=== PATIENT | male | born 1975 | race Caucasian/White ===

== ENCOUNTER 2023-12-23 06:09 | Emergency (ER) | payer OTHER, SELFPAY ==
[2023-12-23] VITALS (13 sets, daily range): BP systolic 120–171; BP diastolic 76–78; PULSE 54–75; RESP 11–21; TEMP 37.2; O2SAT 81–100
[2023-12-23 06:31] LABS: Basophils Absolute Auto 0.1 K/mm3 (0.0-0.1); Basophils Percent Auto 0.7 % (0.2-1.2); Eosinophils Absolute Auto 0.1 K/mm3 (0-0.3); Eosinophils Percent Auto 1.6 % (0-4.4); Hematocrit 47.5 % (42.0-52.0); Hemoglobin 15.9 g/dL (14.0-18.0); Immature Granulocyte Absolute 0.03 K/mm3 (0.00-0.031); Immature Granulocyte Percent A 0.3 % (0-0.5); Lymphocytes Absolute Auto 1.93 K/mm3 (0.9-3.2); Lymphocytes Percent Auto 22.5 % (18.3-44.2); Mean Corpuscular HGB Conc 33.5 g/dl (32-36); Mean Corpuscular Hemoglobin 28.9 pg (26-34); Mean Corpuscular Volume 86.2 fl (80-100); Mean Platelet Volume 9.4 fl (7.4-10.4); Monocytes Absolute Auto 0.6 K/mm3 (0.1-0.6); Monocytes Percent Auto 7.2 % (2.6-8.5); Neutrophils Absolute Auto 5.8 K/mm3 (1.3-6.7); Neutrophils Percent Auto 67.7 % (45.5-73.1); Platelet Count Result 244 k/mm3 (150-375); Red Blood Count 5.51 M/mm3 (4.6-6.20); Red Cell Distribution Width 12.5 % (11.5-14.5); White Blood Count 8.6 K/mm3 (4.5-10.0)
[2023-12-23 07:23] LABS: Alanine Aminotransferase 18 U/L (6-50); Albumin Level 4.5 g/dL (3.5-5.1); Alkaline Phosphatase 93 U/L (38-126); Anion Gap 8 mmol/L (4-12); Aspartate Amino Transferase 20 U/L (17-59); Bilirubin,Total 0.4 mg/dL (0.2-1.3); Blood Urea Nitrogen 13 mg/dL (9-20); Calcium 9.5 mg/dL (8.4-10.2); Carbon Dioxide 25 mmol/L (22-30); Chloride 107 mmol/L (98-107); Estimated CRCL calculation 94 ml/min; Estimated Glomerular Filt Rate > 60; Glucose 169 mg/dL (65-110); Lipase 92 U/L (23-300); Potassium 3.9 mmol/L (3.4-5.0); Sodium 140 mmol/L (137-145)
[2023-12-23] MEDS: SODIUM CHLORIDE 0.9% IV 1,000 ML 999 ML IV CONT (07:28)
[2023-12-23] MEDS: KETOROLAC 30 MG/ML VIAL (*BKC) IV PUSH (07:29)
--- NOTE | 2023-12-23 07:31 | ED.GENADULT ---
HPI - General Adult General Chief complaint: Abdominal Pain Stated complaint: abd pain Time Seen by Provider: 12/23/23 07:03 History of Present Illness HPI narrative: Patient is a 48-year-old male who presents ER with right-sided back pain. It is down low he is concerned it is located in the region of his kidney. Ongoing for 2 days. Sharp. No improvement with ibuprofen. No radiation. It is better when he lays down flat and worse when he is up and moving. No radiation into the groin. No history kidney stones. No lower extremity numbness or tingling. No urinary frequency urgency or dysuria. Related Data Allergies Allergy/AdvReac Type Severity Reaction Status Date / Time No Known Allergies Allergy Unverified 09/04/15 19:36 Review of Systems Review of Systems: All systems reviewed & are unremarkable except as noted in HPI and below Constitutional: Constitutional: Reports no additional constitutional complaints Cardiovascular: Cardiovascular: Reports no additional cardiovascular complaints Gastrointestinal: Gastrointestinal: Reports no additional gastrointestinal complaints Genitourinary: Genitourinary: Reports no additional male genitourinary complaints [facility] Social History Social History Smoking status: Current every day smoker Alcohol intake: current Exam Narrative: GENERAL: Well-appearing, well-nourished, and in no acute distress. HEAD: Normocephalic, atraumatic. ENT: Mucous membranes moist. CHEST: Clear to auscultation. No respiratory distress. HEART: Regular rate and rhythm. Normal peripheral pulses. ABDOMEN: Soft, nontender, nondistended. Right midaxillary discomfort on the edge of the abdomen/back. BACK: No midline or paraspinal tendernss of T/L-spine. EXTREMITIES: Normal range of motion. No edema. SKIN: Warm, dry, no rash. NEURO: Alert and oriented x3. PSYCH: Normal mood and affect. Course Course Emergency Course: Patient resting comfortably. Lab work normal. Patient not felt to require imaging. Discharge home with muscle relaxers and anti-inflammatory. Vital Signs Vital signs: Vital Signs Temperature 98.9 F 12/23/23 06:12 Pulse Rate 65 12/23/23 06:12 Respiratory Rate 18 12/23/23 06:12 Blood Pressure 171/78 H 12/23/23 06:12 Pulse Oximetry 100 12/23/23 06:12 Oxygen Delivery Room Air 12/23/23 06:12 Temperature 98.9 F 12/23/23 06:12 Pulse Rate 71 12/23/23 09:30 Respiratory Rate 16 12/23/23 09:30 Blood Pressure 129/77 12/23/23 09:30 Pulse Oximetry 100 12/23/23 09:30 Oxygen Delivery Room Air 12/23/23 06:12 Medical Decision Making Vital Signs Vital Signs: Vital Signs Temperature 98.9 F 12/23/23 06:12 Pulse Rate 65 12/23/23 06:12 Respiratory Rate 18 12/23/23 06:12 Blood Pressure 171/78 H 12/23/23 06:12 Pulse Oximetry 100 12/23/23 06:12 Oxygen Delivery Room Air 12/23/23 06:12 Temperature 98.9 F 12/23/23 06:12 Pulse Rate 71 12/23/23 09:30 Respiratory Rate 16 12/23/23 09:30 Blood Pressure 129/77 12/23/23 09:30 Pulse Oximetry 100 12/23/23 09:30 Oxygen Delivery Room Air 12/23/23 06:12 Lab Data 12/23/23 06:26 12/23/23 06:14 Labs: Lab Results 12/23/23 12/23/23 12/23/23 Range/Units 06:14 06:26 09:14 WBC 8.6 (4.5-10.0) K/mm3 RBC 5.51 (4.6-6.20) M/mm3 Hgb 15.9 (14.0-18.0) g/dL Hct 47.5 (42.0-52.0) % MCV 86.2 (80-100) fl MCH 28.9 (26-34) pg MCHC 33.5 (32-36) g/dl RDW 12.5 (11.5-14.5) % Plt Count 244 (150-375) k/mm3 MPV 9.4 (7.4-10.4) fl Immature Gran % (Auto) 0.3 (0-0.5) % Neut % (Auto) 67.7 (45.5-73.1) % Lymph % (Auto) 22.5 (18.3-44.2) % Anderson % (Auto) 7.2 (2.6-8.5) % Eos % (Auto) 1.6 (0-4.4) % Baso % (Auto) 0.7 (0.2-1.2) % Lymph # (Auto) 1.93 (0.9-3.2) K/mm3 Anderson # (Auto) 0.6 (0.1-0.6) K/mm3 Eos # (Auto) 0.1 (0-0.3) K/mm3 Baso # (Auto) 0.1 (0.
[2023-12-23 09:23] LABS: Appearance Urine Clear (Clear); Bilirubin Urine Negative (Negative); Blood Urine Negative (Negative); Color Urine Yellow (Yellow); Glucose Urine UA Negative (Negative); Ketones Urine Negative (Negative); Leukocyte Esterase Ur Negative LEU/UL (Negative); Nitrate Urine Negative (Negative); Protein Urine Negative (Negative); Specific Grav Ur 1.019 (1.001-1.035); Urobilinogen Urine 0.2 mg/dL (<2.0)
[2023-12-23 09:28] LABS: Add Urine Microscopic? NO
== END 2023-12-23 10:04 | disposition home or self-care (01) ==
PROVIDERS: Emergency Medicine; Emergency Provider Emergency Medicine
DX: S39.012A Strain of muscle, fascia and tendon of lower back, initial encounter (principal)
CPT/HCPCS: 36415; 80053; 81003; 83690; 85025; 96361; 96374; 99284; J1885; J7030

== ENCOUNTER 2024-04-12 08:03 | Emergency (ER) | payer OTHER, SELFPAY ==
--- NOTE | ~2024-04-12 | XR_ITS ---
EXAMINATION: XR shoulder RT min 2V DATE: 04/12/2024 08:58 INDICATION: Right shoulder pain. Fall. TECHNIQUE: 4 views of right shoulder were obtained. COMPARISON: None. FINDINGS: Bone alignment is normal. No fracture. There is mild osteoarthritis of glenohumeral joint a nd severe osteoarthritis of acromioclavicular joint. There is mild calcific tendinitis of the rotator cuff. IMPRESSION: 1. Polyarticular osteoarthritis. 2. Mild calcific tendinitis of the rotator cuff. Reviewed, dictated and finalized at location A.
--- NOTE | ~2024-04-12 | XR_ITS ---
XR elbow RT min 3V Ordering provider: Khari Pablo MD History: . FALL FROM 6FT 4 DAYS AGO. RT ARM PAIN/LIMITED ROM . Comparison: None. FINDINGS: BONES: Fragmentation seen in the area of the lateral epicondyle of the distal humerus which may be ac ibrahima or chronic. Clinical correlation for tenderness in the area advised. JOINT SPACES: Normal. SOFT TISSUES: Unremarkable. No definite joint effusion. IMPRESSION: Fragmentation with bones in the lateral condyle of the humerus which is most likely chronic but clini jason correlation for tenderness in the area is advised. Reviewed, dictated and finalized at location A. IMPRESSION: Fragmentation with bones in the lateral condyle of the humerus which is most li karla chronic but clinical correlation for tenderness in the area is advised.
--- NOTE | ~2024-04-12 | XR_ITS ---
XR wrist RT min 3V Ordering provider: Khari Pablo MD History: . FALL FROM 6FT 4 DAYS AGO. RT ARM PAIN/LIMITED ROM . Comparison: None. FINDINGS: BONES: No acute fracture or dislocation. No definite scaphoid fracture. JOINT SPACES: Normal. SOFT TISSUES: Normal. IMPRESSION: No acute osseous abnormality right wrist. Reviewed, dictated and finalized at location A.
[2024-04-12 08:07] VITALS: BP 146/86; PULSE 98; RESP 16; TEMP 36.8; O2SAT 100
[2024-04-12] MEDS: ACETAMINOPHEN 500 MG TABLET 1000 MG PO (08:43)
[2024-04-12] MEDS: methocarbamoL 750 MG TABLET 1500 MG PO (08:44)
[2024-04-12] MEDS: IBUPROFEN 400 MG TABLET 800 MG PO (08:44)
--- NOTE | 2024-04-12 09:05 | PC.NURSE ---
Pt c/o right shoulder discomfort & limited ROM. Pt unable to raise right arm without pain, ROM limited, tender upon palpitation, radial & brachial pulses palp & strong
--- NOTE | 2024-04-12 09:20 | ED.GENADULT ---
HPI - General Adult General Chief complaint: Extremity Injury, Upper Stated complaint: R arm pain after falling off 6ft ladder Time Seen by Provider: 04/12/24 08:28 History of Present Illness HPI narrative: This is a 49-year-old male presenting 3 days after he fell off a 6 ft ladder. Patient fell off ladder landed on his right arm. He felt his shoulder jam at that time. He did not immediately seek medical care but he is now having pain with movement of the right arm. Specifically with abduction of the shoulder. He has been taking Motrin and Tylenol for pain control. Related Data Allergies Allergy/AdvReac Type Severity Reaction Status Date / Time No Known Allergies Allergy Verified 04/12/24 08:10 ON LICENSE OF [facility] Social History Social History Smoking status: Current every day smoker Alcohol intake: current Exam Narrative: APPEARANCE: No apparent distress. Head: atraumatic. EYES: EOMI, NOSE: Atraumatic NECK: Trachea midline RESPIRATORY: No increased rate of breathing CARDIOVASCULAR: RRR, ABDOMINAL: Non-distended MUSCULOSKELETAl: Focal exam of the right upper extremity revealed tenderness with active and passive range motion of the shoulder. No pain on extension flexion of the elbow. No pain in the wrist. Radial ulnar median motor nerve distributions in the hand intact. +2. NEURO: Alert. Moving 4/4 extremities SKIN:: Warm, dry. Normal color PSYCHIATRIC: Normal affect Course Vital Signs Vital signs: Vital Signs Temperature 98.3 F 04/12/24 08:07 Pulse Rate 98 04/12/24 08:07 Respiratory Rate 16 04/12/24 08:07 Blood Pressure 146/86 H 04/12/24 08:07 Pulse Oximetry 100 04/12/24 08:07 Oxygen Delivery Room Air 04/12/24 08:07 Temperature 98.3 F 04/12/24 08:07 Pulse Rate 98 04/12/24 08:07 Respiratory Rate 16 04/12/24 08:07 Blood Pressure 146/86 H 04/12/24 08:07 Pulse Oximetry 100 04/12/24 08:07 Oxygen Delivery Room Air 04/12/24 08:07 Medical Decision Making MDM Narrative Medical decision making narrative: -Course: 49-year-old male presenting right arm pain after a fall. X-rays shoulder showed mild calcific tendonitis. X-ray of the elbow showed some chronic appearing fractures of the lateral condyle. Patient's pain is on the lateral side but located more towards the olecranon. Wrist x-ray is negative. Patient treated with Motrin Tylenol Robaxin patient discharged with primary care/orthopedic follow up. -DDX includes but is not limited to: Soft tissue injury, bony injury -Independent interpretation of studies: Imaging reviewed -Interventions: Motrin Tylenol Robaxin -Shared decision making / Disposition: Discharged -RX Motrin Tylenol Robaxin Vital Signs Vital Signs: Vital Signs Temperature 98.3 F 04/12/24 08:07 Pulse Rate 98 04/12/24 08:07 Respiratory Rate 16 04/12/24 08:07 Blood Pressure 146/86 H 04/12/24 08:07 Pulse Oximetry 100 04/12/24 08:07 Oxygen Delivery Room Air 04/12/24 08:07 Temperature 98.3 F 04/12/24 08:07 Pulse Rate 98 04/12/24 08:07 Respiratory Rate 16 04/12/24 08:07 Blood Pressure 146/86 H 04/12/24 08:07 Pulse Oximetry 100 04/12/24 08:07 Oxygen Delivery Room Air 04/12/24 08:07 Discharge Plan Discharge Clinical Impression: Acute shoulder pain, Elbow pain Patient Disposition: Home, Self-Care Condition: Stable Instructions: Antibiotic Form, Elbow Sprain (ED), Calcific Tendinitis (ED) Additional Instructions: Please take Motrin Tylenol and Robaxin for your pain. Your pain does not improve over the next week please follow-up with orthopedics or primary care physician. Please return if develops severe pain or weakness in her Prescriptions: New ibuprofen 800 mg tablet 800 mg PO TID PRN (Reason: pain) 7 Days Qty: 21 0RF acetaminophen 500 mg tablet 1,000 mg PO TID PRN (Reason: henrique) 7 Days Qty: 42 0RF methocarbamol 750 mg tablet 1,500 mg PO TID Qty: 35 0RF No A
[2024-04-12 09:52] VITALS: BP 140/78; PULSE 78; RESP 18; TEMP 36.8; O2SAT 98
== END 2024-04-12 09:56 | disposition home or self-care (01) ==
PROVIDERS: Emergency Provider Emergency Medicine
DX: S49.91XA Unspecified injury of right shoulder and upper arm, initial encounter (principal); S59.901A Unspecified injury of right elbow, initial encounter; F17.200 Nicotine dependence, unspecified, uncomplicated; M75.31 Calcific tendinitis of right shoulder; M19.011 Primary osteoarthritis, right shoulder; W11.XXXA Fall on and from ladder, initial encounter
CPT/HCPCS: 73030; 73080; 73110; 99284; A9270

== ENCOUNTER 2024-06-25 09:54 | Outpatient (CLI) | payer OTHER, SELFPAY ==
--- NOTE | ~2024-06-25 | MR_ITS ---
EXAMINATION: MR shoulder RT wo con DATE: 06/25/2024 10:24 INDICATION: Unspecified rotator cuff tear or rupture. TECHNIQUE: Magnetic resonance imaging (MRI) of the right shoulder was performed without intravenous c ontrast. Sequences included axial PD-weighted FS FSE, coronal oblique PD-weighted FS FSE and T2-weigh chris FS FSE, and sagittal oblique T2-weighted FS FSE and T1-weighted FSE. COMPARISON: Right shoulder radiographs 04/12/2024 FINDINGS: Coracoacromial arch: The acromion undersurface is flat in morphology (type I). There is severe acromioclavicular joint ost eoarthritis including inferiorly directed osteophytes. There is moderate subacromial/subdeltoid bursi tis. Rotator cuff: There is a full-thickness tear of supraspinatus and anterior infraspinatus tendons measuring 2.4 cm a nterior to posterior by 2.9 cm proximal to distal. Teres minor tendon is normal. There is moderate torre bscapularis tendinopathy. There is no asymmetric fatty atrophy of the rotator cuff muscle bellies. Biceps tendon and glenoid labrum: Biceps tendon is in bicipital groove. There is a partial tear of intra-articular biceps tendon. There is degenerative tearing of the glenoid labrum. Fluid: There is a moderate-sized glenohumeral joint effusion. Bones/cartilage: There is cartilage surface irregularity of glenoid and humeral head. IMPRESSION: 1. Full-thickness rotator cuff tear. 2. Mild glenohumeral joint chondrosis. 3. Partial tear of biceps tendon. 4. Severe acromioclavicular joint osteoarthritis. 5. Moderate-sized glenohumeral joint effusion and moderate subacromial/subdeltoid bursitis. Reviewed, dictated and finalized at location A. IMPRESSION: 1. Full-thickness rotator cuff tear. 2. Mild glenohumeral joint chondrosis. 3. Partial tear of biceps tendon. 4. Severe acromioclavicular joint osteoarthritis. 5. Moderate-sized glenohumeral joint effusion and moderate subacromial/subdelto id bursitis.
== END 2024-06-25 09:55 | disposition home or self-care (01) ==
LOC: ANHIMG 09:54
PROVIDERS: Visit Provider Orthopaedic Surgery
DX: M75.121 Complete rotator cuff tear or rupture of right shoulder, not specified as traumatic (principal); S46.211A Strain of muscle, fascia and tendon of other parts of biceps, right arm, initial encounter; M19.011 Primary osteoarthritis, right shoulder; M25.411 Effusion, right shoulder; M75.51 Bursitis of right shoulder
CPT/HCPCS: 73221